=== PATIENT | female | born 1955 | race Two or more races ===

== ENCOUNTER 2016-10-08 16:21 | Emergency (ER) | payer OTHER ==
[~2016-10-08] VITALS: Ht 152.4 cm; Wt 65.0 kg
[~2016-10-08 16:21] MED LIST: ADVAIR 250/501 DISK IH; ASCORBIC ACID100 MG PO; ASPIR-LOW81 MG PO; ATORVASTATIN CA40 MG PO; BRILINTA90 MG PO; COMBIVENT RESPIM4 GM IH; LO-DOSE ASPIRIN81 M2 PO; LOPRESSOR25 MG PO; LOSARTAN POTASS25 MG PO; METOPROLOL TART25 MG PO; MOBIC15 MG PO; ONE DAILY FOR1 EAC1 PO; SENNA8.6 MG PO
[2016-10-08] MEDS ORDERED: BRILINTA90 MG PO (18:07)
[2016-10-08] MEDS ORDERED: LOSARTAN (18:07)
[2016-10-08] MEDS ORDERED: LIPITOR40 MG PO (18:09)
[2016-10-08] MEDS ORDERED: METOPROLOL TART25 MG PO (18:09)
[2016-10-08] MEDS ORDERED: NITROGLYCERIN0.4 MG SL (18:10)
[2016-10-08] MEDS ORDERED: LO-DOSE ASPIRIN81 M2 PO (18:11)
[2016-10-08] MEDS ORDERED: SENNO8.6 MG PO (18:12)
[2016-10-08] MEDS ORDERED: MULTI-VITAMIN1 EAC4 PO (18:13)
[2016-10-08] MEDS ORDERED: VITAMIN D2000 UNIT PO (18:14)
[2016-10-08] MEDS ORDERED: COMPLEX B-1001 EACH PO (18:14)
[2016-10-08 19:53] VITALS: BP 113/71
== END 2016-10-08 19:54 | disposition home or self-care (01) ==
LOC: EME 16:21
DX: S00.83XA Contusion of other part of head, initial encounter (principal); W22.8XXA Striking against or struck by other objects, initial encounter; I25.2 Old myocardial infarction; Z98.61 Coronary angioplasty status
CPT/HCPCS: 70450; 99281; 99284

== ENCOUNTER → 2017-10-26 | Outpatient (CLI) | payer OTHER ==
[~2017-10-26] VITALS: Ht 154.9 cm; Wt 68.0 kg
[~2017-10-26] MED LIST changes: +BRILINTA60 MG PO; +COMPLEX B-1001 EACH PO; +COZAAR25 MG PO; +LIPITOR40 MG PO; +LOSARTAN; +MULTI-VITAMIN1 EAC4 PO; +NITROGLYCERIN0.4 MG SL; +PROAIR RESPICL90 MCG IH; +SENNO8.6 MG PO; +SPIRIVA RESPIMAT4 G1 IH; +VITAMIN D2000 UNIT PO
== END | disposition home or self-care (01) ==
LOC: AMB 13:15
PROC: 0DB68ZX Excision of Stomach, Via Natural or Artificial Opening Endoscopic, Diagnostic (ICD-10-PCS; principal; 2017-10-26)
DX: K29.50 Unspecified chronic gastritis without bleeding (principal); B96.81 Helicobacter pylori [H. pylori] as the cause of diseases classified elsewhere; K25.9 Gastric ulcer, unspecified as acute or chronic, without hemorrhage or perforation; I10 Essential (primary) hypertension; J44.9 Chronic obstructive pulmonary disease, unspecified; Z87.891 Personal history of nicotine dependence; I25.2 Old myocardial infarction; Z95.5 Presence of coronary angioplasty implant and graft; Z79.82 Long term (current) use of aspirin
CPT/HCPCS: 88305; 88342 TC; 93005; 94640